=== PATIENT | female | born 1980 | race Hispanic/Latino ===

== ENCOUNTER → 2016-06-16 | Outpatient (CLI) | payer OTHER ==
--- NOTE | 2016-06-16 14:13 | Diagnostic Imaging Report ---
INDICATION: Pelvic pain, constant vaginal bleeding since May 2016. COMPARISON: None. DISCUSSION: Transabdominal and transvaginal sonographic evaluation of the pelvis was performed. The uterus is normal in echotexture and size measuring 8.2 x 5.4 x 4.7 cm. Normal endometrial thickness measuring 0.6 cm. The ovaries appear normal in echotexture and size bilaterally with normal color Doppler blood flow. The right ovary measures 3.9 x 1.9 x 2.2 cm. The left ovary measures 3.4 x 1.8 x 1.2 cm. No abnormal adnexal mass or fluid. IMPRESSION: 1. Unremarkable pelvic ultrasound. Dictated by: Dictated on workstation # [id number]
== END ==
LOC: RAD 13:03
PROVIDERS: ATTEND Nurse Practitioner Adult Health
DX: R10.2 Pelvic and perineal pain (principal)
CPT/HCPCS: 76830; 76856